=== PATIENT | male | born 1970 | race Caucasian/White ===

== ENCOUNTER 2016-06-24 20:29 | Emergency (ER) ==
[2016-06-24 20:35] VITALS: BP 156/94; TEMP 98.2; BMI 31.5
--- NOTE | 2016-06-24 20:47 | ED.PDOC ---
General ED Provider: Dr. SARAH LINCOLN Chief Complaint: Kidney Stone Stated Complaint: Patient is a 45 year old male with a history of kidney stones who comes to the ER with severe left flank dull pain. Pain started 2 hours ago now worse radiating to the left groin. Feels like prior history of stones. Time Seen by Physician: 20:46 Mode of Arrival: Walk-In Information Source: Patient Exam Limitations: No limitations Primary Care Provider: JASEN ROBBINS Nursing and Triage Documentation Reviewed and Agree: Yes Review of Systems - Review Of Systems Constitutional: Reports: Loss of appetite Eyes: Reports: No symptoms Ears, Nose, Mouth, Throat: Reports: No symptoms Respiratory: Reports: No symptoms Cardiac: Reports: No symptoms GI: Reports: Nausea : Reports: Flank pain, Pain Musculoskeletal: Reports: No symptoms Skin: Reports: No symptoms Neurological: Reports: No symptoms Endocrine: Reports: No symptoms Hematologic/Lymphatic: Reports: No symptoms All Other Systems: Reviewed and Negative Past Medical History - Past Medical History Endocrine: Reports: Unknown Cardiovascular: Reports: Unknown Respiratory: Reports: Unknown Hematological: Reports: Unknown Gastrointestinal: Reports: Unknown Genitourinary: Reports: Unknown Neuro/Psych: Reports: Unknown Musculoskeletal: Reports: Unknown Cancer: Reports: Unknown - Surgical History General Surgical History: Reports: Unknown - Family History Family History: Reports: Unknown - Social History Smoking Status: Never smoker Hx Substance Use: No Alcohol Screening: Occasionally - Immunizations Tetanus Shot up to Date: Yes Physical Exam - Physical Exam Appearance: Ill-appearing, Obese Ill-appearing: Severe Pain Distress: Severe Neck: Supple Respiratory: Airway patent, Breath sounds clear, Breath sounds equal, Respirations nonlabored Cardiovascular: RRR, Pulses normal, No rub, No murmur GI/: Soft, Nontender, No masses, Bowel sounds normal, No Organomegaly Musculoskeletal: Normal strength, ROM intact, No edema, No calf tenderness Skin: Warm Neurological: Sensation intact, Motor intact Psychiatric: Anxious Interpretation - Radiology Interpretation Radiology Interpretation By: Radiologist Radiology Results: Positive Exam Interpreted: CT Scan (8 x 5 mm stone in the UPJ) Physician Notification - Case Discussed Physician Notified: Dr. Orantes Time of Notification: 21:30 (Have pateint follow up in the [facility] at 1130 AM and to be NPO ) Critical Care Note - Critical Care Note Total Time (mins): 0 Course - Course Hematology/Chemistry: 06/24/16 21:00 06/24/16 21:00 Orders, Labs, Meds: Lab Review 06/24/16 06/24/16 20:45 21:00 WBC 8.23 RBC 5.05 Hgb 14.4 Hct 41.6 L MCV 82.4 MCH 28.5 MCHC 34.6 RDW Coeff of Della 13.0 Plt Count 238 Immature Gran % (Auto) 0.2 Neut % (Auto) 37.7 Lymph % (Auto) 51.4 H [place] % (Auto) 7.0 Eos % (Auto) 2.4 Baso % (Auto) 1.3 Immature Gran # (Auto) 0.0 Neut # 3.1 Lymph # 4.2 H [place] # 0.6 Eos # 0.2 Baso # 0.1 Sodium 141 Potassium 3.9 Chloride 103 Carbon Dioxide 28 Anion Gap 13.9 BUN 13 Creatinine 1.00 Estimated GFR (MDRD) 81.00 BUN/Creatinine Ratio 13.00 Glucose 215 H Calcium 9.5 Total Bilirubin 0.31 AST 15 ALT 17 Alkaline Phosphatase 54 Total Protein 7.6 Albumin 3.8 Globulin 3.8 Albumin/Globulin Ratio 1.00 Amylase 73 Lipase 31 Urine Color Yellow Urine Clarity Slightly Urine pH 5.0 Ur Specific [place] 1.015 Urine Protein Negative Urine Glucose (UA) Negative Urine Ketones Negative Urine Blood 2+ Urine Nitrite Negative Urine Bilirubin Negative Urine Urobilinogen 0.2 Ur Leukocyte Esterase Negative Urine Microscopic RBC 50-100 Ur Squamous Epith Cells Not present Orders Category Date Time Status ED IV/MEDIPORT/POWERPORT .ONCE EMERGENCY 06/24/16 20:50 Active AMYLASE Stat LAB 06/24/16 21:00 Completed CBC W/ AUTO DIFF Stat LAB 06/24/16 21:00 Completed COMPREHENSIVE METABOLIC PANEL Stat LAB 06/24/16 21:00 Completed LIPASE Stat LAB 06/24/16 21:00 Completed URINALYSIS C & S IF INDICATED Stat LAB 06/24/16 20:45 Completed 0.9 % Sodium Chloride [Saline Flush] MEDS 06/24/16 20:50 Discontinued 1 syr IVF PRN PRN Hydromorphone HCl [Dilaudid 1 mg/ml Syringe] MEDS 06/24/16 21:50 Discontinued 1 mg IVP ONCE STA Ketorolac Tromethamine [Toradol] MEDS 06/24/16 20:51 Discontinued 30 mg IVP ONCE STA Ondansetron HCl/Pf [Zofran 4 mg/2 ml] MEDS 06/24/16 20:50 Discontinued 4 mg IVP ONCE STA Sodium Chloride 0.9% [Sodium Chloride] 1,000 ml MEDS 06/24/16 20:50 Discontinued IV BOLUS Tamsulosin HCl [Flomax] MEDS 06/24/16 21:51 Discontinued 0.4 mg PO ONCE STA CT ABD/PEL WO RENAL STONE PROT Stat RADS 06/24/16 20:50 Completed Medications Discontinued Medications Generic Name Dose Route Start Last Admin Trade Name Freq PRN Reason Stop Dose Admin Hydromorphone HCl 1 mg 06/24/16 21:50 06/24/16 22:15 Dilaudid 1 Mg/Ml Syringe IVP 06/24/16 21:51 1 mg ONCE STA Administration Sodium Chloride 1,000 mls @ 1,000 mls/hr 06/24/16 20:50 06/24/16 21:08 Sodium Chloride IV 06/24/16 21:49 1,000 mls/hr BOLUS STA Administration Ketorolac Tromethamine 30 mg 06/24/16 20:51 06/24/16 21:13 Toradol IVP 06/24/16 20:52 30 mg ONCE STA Administration Ondansetron HCl 4 mg 06/24/16 20:50 06/24/16 21:11 Zofran 4 Mg/2 Ml IVP 06/24/16 20:51 4 mg ONCE STA Administration Sodium Chloride 1 syr 06/24/16 20:50 06/24/16 22:22 Saline Flush IVF 1 syr PRN PRN Administration To flush IV Tamsulosin HCl 0.4 mg 06/24/16 21:51 06/24/16 22:14 Flomax PO 06/24/16 21:52 0.4 mg ONCE STA Administration Vital Signs: Temp Pulse Resp BP Pulse Ox 06/24/16 20:30 98.2 F 87 20 156/94 H 98 Departure - Departure Time of Disposition: 22:43 Disposition: HOME SELF-CARE Discharge Problem: Nephrolithiasis Instructions: Renal Colic (ED), Kidney Stones (ED) Condition: Stable Pt referred to PMD for follow-up: Yes (in the morning with Dr Orantes. ) Additional Instructions: Follow up with Dr Orantes at 11:30 AM for possible lithotrhysy Do not eat or Drink until then. Prescriptions: Oxycodone-Acetaminophen 10-325 [Percocet 10-325] 1 tab PO Q4H #30 tablet Tamsulosin HCl [Flomax] 0.4 mg PO DAILY #10 cap.er.24h Allergies/Adverse Reactions: Allergies butorphanol tartrate [From Stadol] Adverse Reaction (Verified 06/24/16 21:54) erythromycin base [Erythromycin Base] Adverse Reaction (Verified 06/24/16 21:54) nalbuphine HCl [From Nubain] Adverse Reaction (Verified 06/24/16 21:54) Home Medications: Ambulatory Orders Alprazolam [Xanax] 1 mg PO BID 11/29/13 Aspirin [Aspirin Chewable] 81 mg PO DAILYWM 11/29/13 Citalopram Hydrobromide [Celexa] 40 mg PO DAILY 11/29/13 Furosemide [Lasix] 20 mg PO DAILY 11/29/13 Glimepiride [Amaryl] 2 mg PO DAILYWM 11/29/13 Hydrocodone Bit/Acetaminophen [[place] 10-325] 1 each PO Q4HR 11/29/13 Losartan Potassium [Cozaar] 100 mg PO DAILY 11/29/13 Pravastatin Sodium 10 mg PO DAILY 11/29/13 Ranitidine HCl [Zantac] 150 mg PO BIDAC 11/29/13 Tramadol HCl [Ultram] 50 mg PO Q6H 11/29/13 Oxycodone-Acetaminophen 10-325 [Percocet 10-325] 1 tab PO Q4H #30 tablet Tamsulosin HCl [Flomax] 0.4 mg PO DAILY #10 cap.er.24h 06/24/16
[2016-06-24] MEDS ORDERED: SODIUM CHLORIDE 1,000 ML IV STA (20:50)
[2016-06-24] MEDS ORDERED: ZOFRAN 4 MG/2 ML IVP STA (20:50)
[2016-06-24 20:51] LABS: BILIRUBIN,URINE Negative (NEGATIVE); KETONES,URINE Negative (NEGATIVE); LEUKOCYTE ESTERASE ,URINE Negative (NEGATIVE); NITRITE,URINE Negative (NEGATIVE); PROTEIN,URINE Negative (NEGATIVE); URINE, BLOOD 2+ (NEGATIVE)
[2016-06-24] MEDS ORDERED: TORADOL IVP STA (20:51)
[2016-06-24 20:56] LABS: ADD URINE MICROSCOPIC YES
[2016-06-24 21:04] LABS: BASOPHILS # (AUTO) 0.1 K/uL (0-0.2); BASOPHILS % (AUTO) 1.3 % (0.0-3.0); EOSINOPHILS # (AUTO) 0.2 K/ul (0.0-0.7); EOSINOPHILS % (AUTO) 2.4 % (0.0-7.0); HEMATOCRIT 41.6 % (42.0-52.0); HEMOGLOBIN 14.4 g/dl (14.0-18.0); IMMATURE GRANULOCYTE % (AUTO) 0.2 % (0.0-5.0); LYMPHOCYTES # (AUTO) 4.2 K/uL (0.60-3.4); LYMPHOCYTES % (AUTO) 51.4 (10.0-50.0); MEAN CORPUSCULAR HEMOGLOBIN 28.5 pg (27.0-31.0); MEAN CORPUSCULAR HGB CONC 34.6 (31.8-35.4); MEAN CORPUSCULAR VOLUME 82.4 fl (80.0-94.0); MONOCYTES # (AUTO) 0.6 K/uL (0.4-2.0); NEUTROPHILS # (AUTO) 3.1 K/ul (2.0-6.9); NEUTROPHILS % (AUTO) 37.7; PLATELET COUNT 238 10^3/uL (140-440); RED BLOOD COUNT 5.05 10^6/ul (4.70-6.10); WHITE BLOOD COUNT 8.23 K/ul (4.2-10.2)
--- NOTE | 2016-06-24 21:20 | CT ---
EXAM: CT abdomen pelvis without intravenous contrast 06/24/2016. Sagittal and coronal reformatted images obtained HISTORY: Left flank pain COMPARISON: 11/29/2013 FINDINGS: The liver, gallbladder, adrenal glands and right kidney show no acute process. Obstructing stone is present at the left ureteral pelvic junction. This measures approximately 8 x 5 mm. The spleen and pancreas show no acute abnormality. No bowel obstruction. Normal appendix. Unremarkable urinary bladder. No free air or free fluid. Chronic degenerative disc disease. L4-L5 spinal stenosis. IMPRESSION: 1. 8 x 5 mm diameter stone at the left ureteropelvic junction causes moderate left hydronephrosis.
[2016-06-24 21:24] LABS: ALBUMIN 3.8 g/dL (3.4-5.0); ANION GAP 13.9; BILIRUBIN,TOTAL 0.31 mg/dL (0.00-1.20); CALCIUM 9.5 mg/dL (8.2-10.2); POTASSIUM 3.9 mmol/L (3.5-5.1); TOTAL PROTEIN 7.6 g/dL (6.4-8.2)
[2016-06-24] MEDS ORDERED: DILAUDID 1 MG/ML SYRINGE IVP STA (21:50)
[2016-06-24] MEDS ORDERED: FLOMAX PO STA (21:51)
== END 2016-06-24 22:58 | disposition home or self-care (01) ==
LOC: ED 20:29
DX: N20.0 Calculus of kidney (principal); Z87.442 Personal history of urinary calculi
CPT/HCPCS: 36415; 74176; 80053; 81001; 82150; 83690; 85025; 96361; 96374; 96375; 99283

== ENCOUNTER 2016-08-10 23:50 | Emergency (ER) ==
[2016-08-11 00:04] VITALS: BP 166/95; TEMP 99; BMI 33.0
[2016-08-11] MEDS ORDERED: XANAX PO STA (00:07)
[2016-08-11] MEDS ORDERED: XANAX ONE (00:12)
--- NOTE | 2016-08-11 00:19 | ED.PDOC ---
General ED Provider: Dr. MANDI IRBY-ER Chief Complaint: Psychiatric Complaint Stated Complaint: im very nervous--josep been out of my xanax for two days--i feel very shaky Time Seen by Physician: 23:55 Mode of Arrival: Walk-In Information Source: Patient, Family Exam Limitations: No limitations Nursing and Triage Documentation Reviewed and Agree: Yes Psychological Complaint Exam - Psychiatric Complaint/Exam Patient Complains Of: Present: Other Onset/Duration: 2 days Symptoms Are: Still present Timing: Constant Initial Severity: Mild Character: Present: Fearful, Anxious Aggravating: Reports: Recent stress Associated Signs And Symptoms: Reports: Sleep disturbance. Denies: Hostile, Confused, Hallucinating, Paranoid behavior, Appetite change Related History: Denies: Suicidal thoughts, Suicidal plan, Suicidal gestures, Homicidal thoughts, Homicidal plan, Homicidal gestures, Prior attempts, Recent stressors, Drug ingestion Completed Suicide Risk Factors: Male, Patient Accompanied By: Family Patient In Custody Of Police: No Social Withdrawal Present: No Social Isolation Present: No Prior Suicide Attempt: No Injury From Prior Suicide Attempt: No Related Surgical History: Reports: None Patient Uncooperative For Exam: No Mood: Present: Anxious. Absent: Depressed, Angry, Guarded, Paranoid, Hallucinating, Manic, Agitated, Hearing voices Appearance: Present: Clean Thought Process: Present: Logical Insight: Present: Good Memory: Intact Judgement: Normal Danger To Others: No Differential Diagnoses: Anxiety Review of Systems - Review Of Systems Constitutional: Reports: No symptoms Eyes: Reports: No symptoms Ears, Nose, Mouth, Throat: Reports: No symptoms Respiratory: Reports: No symptoms Cardiac: Reports: No symptoms GI: Reports: No symptoms : Reports: No symptoms Musculoskeletal: Reports: No symptoms Skin: Reports: No symptoms Neurological: Reports: No symptoms Endocrine: Reports: No symptoms Hematologic/Lymphatic: Reports: No symptoms All Other Systems: Reviewed and Negative Past Medical History - Past Medical History Endocrine: Reports: Unknown Cardiovascular: Reports: Unknown Respiratory: Reports: Unknown Hematological: Reports: Unknown Gastrointestinal: Reports: Unknown Genitourinary: Reports: Unknown Neuro/Psych: Reports: Anxiety Musculoskeletal: Reports: Unknown Cancer: Reports: Unknown - Surgical History General Surgical History: Reports: Unknown - Family History Family History: Reports: Unknown - Social History Smoking Status: Never smoker 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, HAS BEEN CLENA FOR 10 YEARS) Alcohol Screening: None Lives: With family - Immunizations Tetanus Shot up to Date: Yes Physical Exam - Physical Exam Appearance: Well-appearing, No pain distress, Well-nourished Eyes: LOUIS, EOMI, Conjunctiva clear ENT: Ears normal, Nose normal, Oropharynx normal Neck: Supple Respiratory: Airway patent Cardiovascular: RRR, Pulses normal, No rub, No murmur GI/: Soft, Nontender, No masses, Bowel sounds normal, No Organomegaly Musculoskeletal: Normal strength, ROM intact, No edema, No calf tenderness Skin: Warm, Dry, Normal color Neurological: Alert, Oriented Psychiatric: Anxious Re-Evaluation - Re-Evaluation Time of Re-Evaluation: 00:20 Status: Improved Vital Signs Stable: Yes Pain Level: 0 Appearance: NAD Lungs: Clear Skin: Warm and Dry Neuro: Alert and Oriented X3 CV: RRR Critical Care Note - Critical Care Note Total Time (mins): 0 Course - Course Orders, Labs, Meds: Orders Category Date Time Status Alprazolam [Xanax] MEDS 08/11/16 00:12 Discontinued 1 mg .ROUTE .STK-MED ONE Alprazolam [Xanax] MEDS 08/11/16 00:07 Discontinued 1 mg PO ONCE STA Mag Hydrox/Al Hydrox/Simeth [Mylanta Susp] MEDS 08/11/16 00:23 Stat 30 ml PO ONCE STA Medications Discontinued Medications Generic Name Dose Route Start Last Admin Trade Name Freq PRN Reason Stop Dose Admin Al Hydroxide/Mg Hydroxide 30 ml 08/11/16 00:23 Mylanta Susp PO 08/11/16 00:24 ONCE STA Alprazolam 1 mg 08/11/16 00:07 08/11/16 00:21 Xanax PO 08/11/16 00:08 Not Given ONCE STA he also requests some mylanta for mild acid indigestion--denies any cp or dyspnea--says mylanta or maalox usually works--no anginal symptoms) Vital Signs: Temp Pulse Resp BP Pulse Ox 08/10/16 23:52 99 F 102 H 24 166/95 H 99 Departure - Departure Time of Disposition: 00:20 Disposition: HOME SELF-CARE Discharge Problem: Anxiety Instructions: Anxiety (ED) Condition: Good Pt referred to PMD for follow-up: Yes Additional Instructions: xanax 1mg tid prn #9--f/u with your doctor Allergies/Adverse Reactions: Allergies butorphanol tartrate [From Stadol] Adverse Reaction (Verified 08/11/16 00:04) erythromycin base [Erythromycin Base] Adverse Reaction (Verified 08/11/16 00:04) nalbuphine HCl [From Nubain] Adverse Reaction (Verified 08/11/16 00:04) Home Medications: Ambulatory Orders Alprazolam [Xanax] 1 mg PO BID 11/29/13 Aspirin [Aspirin Chewable] 81 mg PO DAILYWM 11/29/13 Citalopram Hydrobromide [Celexa] 40 mg PO DAILY 11/29/13 Furosemide [Lasix] 20 mg PO DAILY 11/29/13 Glimepiride [Amaryl] 3 mg PO DAILYWM 11/29/13 Hydrocodone Bit/Acetaminophen [[place] 10-325] 1 each PO Q4HR 11/29/13 Losartan Potassium [Cozaar] 100 mg PO DAILY 11/29/13 Pravastatin Sodium 10 mg PO DAILY 11/29/13 Ranitidine HCl [Zantac] 150 mg PO BIDAC 11/29/13 Tramadol HCl [Ultram] 50 mg PO Q6H 11/29/13 Tamsulosin HCl [Flomax] 0.4 mg PO DAILY #10 cap.er.24h 06/24/16 Dextroamphetamine/Amphetamine [Adderall 15 Mg Tablet] 15 mg PO BID #90 Divalproex Sodium [Depakote ER] 500 mg PO DAILY 08/11/16 Disposition Discussed With: Patient, Family
[2016-08-11] MEDS ORDERED: MYLANTA SUSP PO STA (00:23)
[2016-08-11] MEDS ORDERED: MYLANTA SUSP ONE (01:30)
== END 2016-08-11 00:37 | disposition home or self-care (01) ==
LOC: ED 23:50
DX: F41.9 Anxiety disorder, unspecified (principal)
CPT/HCPCS: 99282

== ENCOUNTER 2017-03-23 08:46 | Outpatient (CLI) ==
[2017-03-23 09:01] LABS: BASOPHILS # (AUTO) 0.2 K/uL (0-0.2); BASOPHILS % (AUTO) 2.2 % (0.0-3.0); EOSINOPHILS # (AUTO) 0.1 K/ul (0.0-0.7); EOSINOPHILS % (AUTO) 1.3 % (0.0-7.0); HEMATOCRIT 43.1 % (42.0-52.0); HEMOGLOBIN 14.8 g/dl (14.0-18.0); IMMATURE GRANULOCYTE % (AUTO) 0.8 % (0.0-5.0); LYMPHOCYTES # (AUTO) 2.7 K/uL (0.60-3.4); LYMPHOCYTES % (AUTO) 37.4 (10.0-50.0); MEAN CORPUSCULAR HEMOGLOBIN 28.7 pg (27.0-31.0); MEAN CORPUSCULAR HGB CONC 34.3 (31.8-35.4); MEAN CORPUSCULAR VOLUME 83.5 fl (80.0-94.0); MONOCYTES # (AUTO) 0.5 K/uL (0.4-2.0); MONOCYTES % (AUTO) 7.2 (0-10); NEUTROPHILS # (AUTO) 3.7 K/ul (2.0-6.9); NEUTROPHILS % (AUTO) 51.1; PLATELET COUNT 241 10^3/uL (140-440); RED BLOOD COUNT 5.16 10^6/ul (4.70-6.10)
[2017-03-23 09:02] LABS: BILIRUBIN,URINE Negative (NEGATIVE); KETONES,URINE Negative (NEGATIVE); LEUKOCYTE ESTERASE ,URINE Negative (NEGATIVE); NITRITE,URINE Negative (NEGATIVE); PROTEIN,URINE Negative (NEGATIVE); URINE, BLOOD Trace-intact (NEGATIVE)
[2017-03-23 09:03] LABS: ADD URINE MICROSCOPIC YES
[2017-03-23 09:10] LABS: COCAIN SCREEN,URINE NEGATIVE (NEGATIVE)
[2017-03-23 09:19] LABS: ALBUMIN 3.6 g/dL (3.4-5.0); ALBUMIN/GLOBULIN RATIO 0.86; ANION GAP 11.3; BILIRUBIN,TOTAL 0.44 mg/dL (0.00-1.20); BUN/CREATININE RATIO 19.38; CALCIUM 9.9 mg/dL (8.2-10.2); CHOL/HDL RATIO 4.6 (4.5-6.4); CREATININE 0.98 mg/dL (0.60-1.10); POTASSIUM 4.3 mmol/L (3.5-5.1); TOTAL PROTEIN 7.8 g/dL (6.4-8.2)
== END 2017-03-23 08:47 | disposition home or self-care (01) ==
LOC: LAB 08:46
PROVIDERS: ATTEND Internal Medicine
DX: M19.90 Unspecified osteoarthritis, unspecified site (principal); E11.9 Type 2 diabetes mellitus without complications
CPT/HCPCS: 36415; 80053; 80061; 80306; 81001; 83036; 85025

== ENCOUNTER 2017-09-10 09:40 | Outpatient (CLI) ==
--- NOTE | 2017-09-10 10:56 | DI ---
EXAM: Radiographs, left knee HISTORY: Left knee osteoarthritis. COMPARISON: None available. TECHNIQUE: Two views. FINDINGS: Bone mineralization is normal. There is no fracture or dislocation. Mild medial compartm ent joint space narrowing noted. Small marginal osteophytes present in all three knee joint compartm ents. No erosions are seen. Soft tissues are unremarkable. IMPRESSION: Mild osteoarthritis.
--- NOTE | 2017-09-10 10:58 | DI ---
Exam: Right hip two-view History: Osteoarthritis FINDINGS / impression: Right hip arthroplasty in place. No brian-hardware fracture or evidence of l oosening. Right sydnee pelvis is intact. No acute bony or articular abnormalities.
== END 2017-09-10 09:41 | disposition home or self-care (01) ==
LOC: RAD 09:40
PROVIDERS: ATTEND Internal Medicine
DX: M16.11 Unilateral primary osteoarthritis, right hip (principal); M17.12 Unilateral primary osteoarthritis, left knee

== ENCOUNTER 2017-10-06 09:43 | Outpatient (CLI) ==
--- NOTE | 2017-10-06 13:54 | DEXA ---
EXAM: DEXA scan. HISTORY: Osteoporosis. COMPARISON: None available. TECHNIQUE: Zenopso [id number]. DEXA scan lumbar spine performed. Quality of the study is good. BMD is 1.345 grams per square centi meter. T-score 1.0. Z-score 0.4. DEXA scan left femoral neck performed. Quality of the study is good. BMD 1.057 grams per square cent imeter. T-score -0.1. Z-score -0.1. IMPRESSION: According to the World Health Organization classification, lumbar spine and left hip bone mineral den sity demonstrates normal mineralization, with no increased fracture risk. Ten-year major osteoporoti c fracture risk is 4.4%. Ten-year hip fracture risk is 0.1%.
== END 2017-10-06 09:44 | disposition home or self-care (01) ==
LOC: RAD 09:43
PROVIDERS: ATTEND Internal Medicine
DX: M81.0 Age-related osteoporosis without current pathological fracture (principal)

== ENCOUNTER 2017-11-29 20:50 | Emergency (ER) ==
[2017-11-29] MEDS ORDERED: TORADOL IM STA (21:03)
[2017-11-29 21:07] VITALS: BP 157/97; TEMP 99.7; BMI 30.9
--- NOTE | 2017-11-29 21:40 | CT ---
EXAM: CT abdomen and pelvis without intravenous contrast 11/29/2017. Sagittal and coronal reformatt ed images obtained HISTORY: Left flank pain COMPARISON: 06/24/2016 FINDINGS: The liver, gallbladder, adrenal glands and right kidney show no acute process. Multifocal right-sided nonobstructive nephrolithiasis. There is moderate to severe left hydronephrosis. Extensive left perinephric stranding. Stone at the left ureteropelvic junction on image 75 measures approximately 6 x 5 mm diameter. A portion of the pelvis is obscured by streak artifacts secondary to right hip arthroplasty. The spleen and pancreas show no acute abnormality. There is no bowel obstruction. Normal appendix. No free air or free fluid. IMPRESSION: 6 x 5 mm diameter stone at the left ureteropelvic junction causes moderate to severe lef t hydronephrosis. Additional details as above.
[2017-11-29] MEDS ORDERED: DILAUDID 2 MG/ML SYRINGE IM STA (21:46)
[2017-11-29] MEDS ORDERED: PHENERGAN 25 MG/ML VIAL IM STA (21:46)
[2017-11-29] MEDS ORDERED: PHENERGAN 25 MG/ML VIAL ONE (21:48)
[2017-11-29] MEDS ORDERED: DILAUDID 2 MG/ML SYRINGE ONE (21:48)
--- NOTE | 2017-11-29 21:49 | ED.PDOC ---
General ED Provider: Dr. MANDI IRBY-ER Chief Complaint: Kidney Stone Stated Complaint: i hurt --i think i have a kidney stone Time Seen by Physician: 20:55 Mode of Arrival: Walk-In Information Source: Patient Exam Limitations: No limitations Primary Care Provider: JASEN ROBBINS Nursing and Triage Documentation Reviewed and Agree: Yes Does patient meet sepsis criteria?: No System Inflammatory Response Syndrome: Not Applicable Sepsis Protocol: For patient's 13 years and over: Temp is 96.8 and below OR 101 and greater Pulse >90 BPM Resp >20/minute Acutely Altered Mental Status Are patient's symptoms suggestive of a new infection, such as: -Pneumonia -Skin, Soft Tissue -Endocarditis -UTI -Bone, Joint Infection -Implantable Device -Acute Abdominal Infection -Wound Infection -Meningitis -Blood Stream Catheter Infection -Unknown GI Complaint Exam - Abdominal Pain Complaint/Exam Onset: Gradual Duration: several hours Symptoms Are: Still present Timing: Constant Initial Severity: Mild Current Severity: Moderate Location of Pain: LLQ Radiates To: Reports: Flank Character: Reports: Dull, Aching Aggravating: Reports: None Alleviating: Reports: None Associated Signs and Symptoms: Reports: Back pain Related History: Reports: Similar episode AAA Risk Factors: Reports: None Surgical Obstruction Risk Factors: Reports: Colicky abdominal pain Related Surgical History: Reports: Kidney Stones Differential Diagnoses: Ureteral Stone Review of Systems - Review Of Systems Constitutional: Reports: No symptoms Eyes: Reports: No symptoms Ears, Nose, Mouth, Throat: Reports: No symptoms Respiratory: Reports: No symptoms Cardiac: Reports: No symptoms GI: Reports: No symptoms : Reports: Flank pain Musculoskeletal: Reports: No symptoms, Back pain Skin: Reports: No symptoms Neurological: Reports: No symptoms Endocrine: Reports: No symptoms Hematologic/Lymphatic: Reports: No symptoms All Other Systems: Reviewed and Negative Past Medical History - Past Medical History Previously Healthy: Yes Endocrine: Reports: Unknown Cardiovascular: Reports: Unknown Respiratory: Reports: Unknown Hematological: Reports: Unknown Gastrointestinal: Reports: Unknown Genitourinary: Reports: Unknown Neuro/Psych: Reports: Anxiety Musculoskeletal: Reports: Unknown Cancer: Reports: Unknown - Surgical History General Surgical History: Reports: Unknown - Family History Family History: Reports: Unknown - Social History Smoking Status: Never smoker 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, HAS BEEN CLEAN FOR 10 YEARS) Alcohol Screening: None - Immunizations Tetanus Shot up to Date: Yes Physical Exam - Physical Exam Appearance: Well-appearing, Well-nourished Pain Distress: Moderate Eyes: [place] ENT: Ears normal, Nose normal, Oropharynx normal Neck: Supple Respiratory: Airway patent Cardiovascular: RRR GI/: Soft, Nontender, No masses, Bowel sounds normal, No Organomegaly Musculoskeletal: Normal strength Skin: Warm, Dry, Normal color Neurological: Sensation intact, Motor intact, Reflexes intact, Cranial nerves intact, Alert, Oriented Psychiatric: Affect appropriate, Mood appropriate Interpretation - Radiology Interpretation Radiology Interpretation By: Radiologist Radiology Results: Positive Exam Interpreted: CT Scan Critical Care Note - Critical Care Note Total Time (mins): 0 Course - Course Hematology/Chemistry: 11/29/17 21:15 11/29/17 21:15 Orders, Labs, Meds: Lab Review 11/29/17 11/29/17 11/29/17 21:12 21:15 21:15 WBC 13.79 H RBC 5.56 Hgb 15.8 Hct 45.0 MCV 80.9 MCH 28.4 MCHC 35.1 RDW Coeff of [place]ella 13.2 Plt Count 287 Immature Gran % (Auto) 0.4 Neut % (Auto) 64.7 Lymph % (Auto) 26.8 [place] % (Auto) 7.0 Eos % (Auto) 0.4 Baso % (Auto) 0.7 Immature Gran # (Auto) 0.1 Neut # (Auto) 8.9 H Lymph # (Auto) 3.7 H [place] # (Auto) 1.0 Eos # (Auto) 0.1 Baso # (Auto) 0.1 Sodium 144 Potassium 3.7 Chloride 105 Carbon Dioxide 27 Anion Gap 15.7 BUN 11 Creatinine 1.14 H Estimated GFR (MDRD) 69.00 BUN/Creatinine Ratio 9.64 Glucose 78 Calcium 10.1 Total Bilirubin 1.1 AST 27 ALT 31 Alkaline Phosphatase 60 Total Protein 9.1 H Albumin 4.3 Globulin 4.8 Albumin/Globulin Ratio 0.90 Urine Color Yellow Urine Clarity Slightly Urine pH 7.0 Ur Specific [place] 1.015 Urine Protein Trace Urine Glucose (UA) Negative Urine Ketones Negative Urine Blood 3+ Urine Nitrite Negative Urine Bilirubin Negative Urine Urobilinogen 0.2 Ur Leukocyte Esterase Trace Urine Microscopic RBC 20-30 Urine Microscopic WBC 0-2 Ur Squamous Epith Cells 0-2 Orders Category Date Time Status CBC W/ AUTO DIFF Stat LAB 11/29/17 21:15 Completed COMPREHENSIVE METABOLIC PANEL Stat LAB 11/29/17 21:15 Completed URINALYSIS C & S IF INDICATED Stat LAB 11/29/17 21:12 Completed Hydromorphone HCl/Pf [Dilaudid 2 mg/ml Syringe] MEDS 11/29/17 21:46 Stat 2 mg IM ONCE STA Ketorolac Tromethamine [Toradol] MEDS 11/29/17 21:03 Discontinued 60 mg IM ONCE STA Promethazine HCl [Phenergan 25 mg/ml Vial] MEDS 11/29/17 21:46 Stat 25 mg IM ONCE STA CT ABD/PEL WO RENAL STONE PROT Stat RADS 11/29/17 21:03 Completed Medications Discontinued Medications Generic Name Dose Route Start Last Admin Trade Name Freq PRN Reason Stop Dose Admin Ketorolac Tromethamine 60 mg 11/29/17 21:03 11/29/17 21:14 Toradol IM 11/29/17 21:04 60 mg ONCE STA Administration Vital Signs: Temp Pulse Resp BP Pulse Ox 11/29/17 20:53 99.7 F H 105 H 24 157/97 H 98 Departure - Departure Time of Disposition: 21:50 Disposition: HOME SELF-CARE Discharge Problem: Ureteral stone Instructions: Ureteral Stones (ED) Condition: Good Pt referred to PMD for follow-up: Yes IPMP verified?: No Additional Instructions: strain all urine--flomax 0.4 daily #3--percocet 7.5mg q 4hrs prn pain#10---f/u with dr mixon tomorrow for urology referral Allergies/Adverse Reactions: Allergies butorphanol tartrate [From Stadol] Adverse Reaction (Verified 11/29/17 21:01) erythromycin base [Erythromycin Base] Adverse Reaction (Verified 11/29/17 21:01) nalbuphine HCl [From Nubain] Adverse Reaction (Verified 11/29/17 21:01) Home Medications: Ambulatory Orders Alprazolam [Xanax] 1 mg PO BID 11/29/13 Aspirin [Aspirin Chewable] 81 mg PO DAILYWM 11/29/13 Citalopram Hydrobromide [Celexa] 40 mg PO DAILY 11/29/13 Furosemide [Lasix] 20 mg PO DAILY 11/29/13 Glimepiride [Amaryl] 2 mg PO DAILYWM 11/29/13 Hydrocodone Bit/Acetaminophen [[place] 10-325] 1 each PO Q4HR 11/29/13 Losartan Potassium [Cozaar] 100 mg PO DAILY 11/29/13 Pravastatin Sodium 20 mg PO DAILY 11/29/13 Ranitidine HCl [Zantac] 150 mg PO BIDAC 11/29/13 Tramadol HCl [Ultram] 50 mg PO Q6H 11/29/13 Dextroamphetamine/Amphetamine [Adderall 20 mg Tablet] 20 mg PO TID 11/29/17 Disposition Discussed With: Patient
== END 2017-11-29 22:30 | disposition home or self-care (01) ==
LOC: ED 20:50
DX: N20.1 Calculus of ureter (principal); Z87.442 Personal history of urinary calculi
CPT/HCPCS: 36415; 74176; 80053; 81001; 85025; 96372; 99283

== ENCOUNTER 2018-02-08 07:38 | Outpatient (CLI) | END 2018-02-08 07:39 | disposition home or self-care (01) | LOC: LAB 07:38 | PROVIDERS: ATTEND Internal Medicine | DX: E11.9 Type 2 diabetes mellitus without complications (principal); M19.90 Unspecified osteoarthritis, unspecified site; F32.9 Major depressive disorder, single episode, unspecified; I73.9 Peripheral vascular disease, unspecified; M54.5 Low back pain | CPT/HCPCS: 36415; 80053; 80061; 83036; 85025 ==

== ENCOUNTER 2018-06-01 13:37 | Emergency (ER) | payer MEDICAID, OTHER ==
[2018-06-01 13:42] VITALS: BP 147/105; TEMP 98.6; BMI 31.5
--- NOTE | 2018-06-01 14:24 | ED.PDOC ---
General ED Provider: Dr. MANDI MACK Chief Complaint: Kidney Stone Stated Complaint: Passed kidney stone. C/O onset lower back pain, more uncomfortable on left side.PMHx kidney stones. Having burning with urination and beleives stone has moved from bladder lodged to end of penis. Time Seen by Physician: 13:55 Mode of Arrival: Walk-In Information Source: Patient Exam Limitations: No limitations Primary Care Provider: JEANNE NICHOLS Nursing and Triage Documentation Reviewed and Agree: No Does patient meet sepsis criteria?: No If yes, has appropriate treatment been initiated?: No System Inflammatory Response Syndrome: Not Applicable Sepsis Protocol: For patient's 13 years and over: Temp is 96.8 and below OR 101 and greater Pulse >90 BPM Resp >20/minute Acutely Altered Mental Status Are patient's symptoms suggestive of a new infection, such as: -Pneumonia -Skin, Soft Tissue -Endocarditis -UTI -Bone, Joint Infection -Implantable Device -Acute Abdominal Infection -Wound Infection -Meningitis -Blood Stream Catheter Infection -Unknown Review of Systems - Review Of Systems Constitutional: Reports: No symptoms Eyes: Reports: No symptoms Ears, Nose, Mouth, Throat: Reports: No symptoms Respiratory: Reports: No symptoms Cardiac: Reports: No symptoms GI: Reports: No symptoms : Reports: Burning, Dysuria, Frequency, Flank pain Musculoskeletal: Reports: Back pain Skin: Reports: No symptoms Neurological: Reports: No symptoms Endocrine: Reports: No symptoms Hematologic/Lymphatic: Reports: No symptoms All Other Systems: Reviewed and Negative Past Medical History - Past Medical History Previously Healthy: Yes Endocrine: Reports: Unknown Cardiovascular: Reports: Unknown Respiratory: Reports: Unknown Hematological: Reports: Unknown Gastrointestinal: Reports: Unknown Genitourinary: Reports: Unknown Neuro/Psych: Reports: Anxiety Musculoskeletal: Reports: Unknown Cancer: Reports: Unknown - Surgical History General Surgical History: Reports: Unknown - Family History Family History: Reports: Unknown - Social History Smoking Status: Never smoker 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, HAS BEEN CLEAN FOR 10 YEARS) Alcohol Screening: None Physical Exam - Physical Exam Appearance: Well-appearing, No pain distress, Well-nourished Eyes: [place]OU[place], EOMI, Conjunctiva clear ENT: Ears normal, Nose normal, Oropharynx normal Respiratory: Airway patent, Breath sounds clear, Breath sounds equal, Respirations nonlabored Cardiovascular: RRR, Pulses normal, No rub, No murmur GI/: Soft, No masses, Bowel sounds normal, No Organomegaly, Tender (minimally tender lower abdomen ; neg guarding or rebound) Musculoskeletal: Normal strength, ROM intact, No edema, No calf tenderness Skin: Warm, Dry, Normal color Neurological: Sensation intact, Motor intact, Reflexes intact, Cranial nerves intact, Alert, Oriented Psychiatric: Affect appropriate, Mood appropriate Interpretation - Radiology Interpretation Exam Interpreted: CT Scan (Rt Nephrolithiasis . Previoulsy notes Lt Ureteral calculus not observed.;diverticulisi;hepatic steatosis) Critical Care Note - Critical Care Note Total Time (mins): 0 Course - Course Hematology/Chemistry: 06/01/18 14:35 06/01/18 14:35 Orders, Labs, Meds: Lab Review 06/01/18 06/01/18 06/01/18 14:10 14:35 14:35 WBC 7.34 RBC 5.52 Hgb 15.1 Hct 44.7 MCV 81.0 MCH 27.4 MCHC 33.8 RDW Coeff of Della 12.7 Plt Count 264 Immature Gran % (Auto) 0.1 Neut % (Auto) 63.7 Lymph % (Auto) 29.2 [place] % (Auto) 4.6 Eos % (Auto) 1.6 Baso % (Auto) 0.8 Immature Gran # (Auto) 0.0 Neut # (Auto) 4.7 Lymph # (Auto) 2.1 [place] # (Auto) 0.3 L Eos # (Auto) 0.1 Baso # (Auto) 0.1 Sodium 142.0 Potassium 4.24 Chloride 102.7 Carbon Dioxide 27.6 Anion Gap 15.94 BUN 17.6 Creatinine 1.04 Estimated GFR (MDRD) 77.00 BUN/Creatinine Ratio 16.92 Glucose 193.2 H Calcium 11.18 H Total Bilirubin 0.62 AST 25.5 ALT 25.7 Alkaline Phosphatase 61.2 Total Protein 9.03 H Albumin 4.79 Globulin 4.24 Albumin/Globulin Ratio 1.12 Urine Color Yellow Urine Clarity Clear Urine pH 5.0 Ur Specific [place] <=1.005 Urine Protein Negative Urine Glucose (UA) Negative Urine Ketones Negative Urine Blood 2+ Urine Nitrite Negative Urine Bilirubin Negative Urine Urobilinogen 0.2 Ur Leukocyte Esterase Negative Urine Microscopic RBC 10-20 Ur Squamous Epith Cells Not present Hyaline Casts 0-2 Orders Category Date Time Status CBC W/ AUTO DIFF Stat LAB 06/01/18 14:35 Completed COMPREHENSIVE METABOLIC PANEL Stat LAB 06/01/18 14:35 Completed URINALYSIS C & S IF INDICATED Stat LAB 06/01/18 14:[address] ABD/PEL WO RENAL STONE PROT Stat RADS 06/01/18 14:22 Completed Vital Signs: Temp Pulse Resp BP Pulse Ox 06/01/18 13:38 98.6 F 107 H 20 147/105 H 97 Departure - Departure Time of Disposition: 15:20 Disposition: HOME SELF-CARE Discharge Problem: Nephrolithiasis Instructions: Kidney Stones (ED) Condition: Good Pt referred to PMD for follow-up: Yes (1 week) IPMP verified?: Yes Additional Instructions: Seen PCP in 1 -2 weeks Strain all urine to screen for stones Diet as directed Allergies/Adverse Reactions: Allergies butorphanol tartrate [From Stadol] Adverse Reaction (Verified 06/01/18 13:43) erythromycin base [Erythromycin Base] Adverse Reaction (Verified 06/01/18 13:43) nalbuphine HCl [From Nubain] Adverse Reaction (Verified 06/01/18 13:43) Home Medications: Ambulatory Orders Alprazolam [Xanax] 1 mg PO BID 11/29/13 Aspirin [Aspirin Chewable] 81 mg PO DAILYWM 11/29/13 Furosemide [Lasix] 20 mg PO DAILY 11/29/13 Hydrocodone Bit/Acetaminophen [[place] 10-325] 1 each PO Q4HR 11/29/13 Losartan Potassium [Cozaar] 100 mg PO DAILY 11/29/13 Pravastatin Sodium 20 mg PO DAILY 11/29/13 Ranitidine HCl [Zantac] 150 mg PO BIDAC 11/29/13 Tramadol HCl [Ultram] 50 mg PO Q6H 11/29/13 Dextroamphetamine/Amphetamine [Adderall 20 mg Tablet] 20 mg PO BID 11/29/17 Duloxetine HCl [Cymbalta] 60 mg PO DAILY 04/05/18 Glimepiride [Amaryl] 3 mg PO DAILY 04/05/18 Hydroxyzine Pamoate [Vistaril] 25 mg PO TID 04/05/18 Topiramate [Topamax] 50 mg PO DAILY 04/05/18 Disposition Discussed With: Patient
--- NOTE | 2018-06-01 15:13 | CT ---
EXAM: CT abdomen pelvis without contra HISTORY: Left renal stone COMPARISON: 11/29/2017 TECHNIQUE: CT abdomen pelvis performed without intravenous contrast. Sagittal reformatted images obt ained. FINDINGS: Lung bases clear. No free air. No acute abnormalities of the bones. Right hip arthropla sty. Degenerative change in the spine. Heart normal in size. Evaluation organ parenchyma limited w ithout contrast. Liver diffusely decreased in attenuation. Gallbladder appears normal. Pancreas ap pears normal. Spleen appears normal. Adrenals appear normal. Aorta normal in caliber. Prostate no rmal in size. No lymphadenopathy or ascites. Stomach appears normal. No dilated loops small bowel. Appendix appears normal. Mild colonic diverticulosis. Two nonobstructing calculi in the right kid bebeto measuring up to 2.5 mm. No left nephrolithiasis. No hydronephrosis. No calculi visualized in t he normal course of the ureters. Bladder partially obscured secondary to streak artifact from right hip arthroplasty, grossly unremarkable. IMPRESSION: 1. Right nephrolithiasis. No hydronephrosis. Previously seen left ureteral calculus no longer pres ent. 2. Diverticulosis. 3. Hepatic steatosis
== END 2018-06-01 15:46 | disposition home or self-care (01) ==
LOC: ED 13:37
DX: N20.0 Calculus of kidney (principal); Z87.442 Personal history of urinary calculi
CPT/HCPCS: 36415; 74176; 80053; 81001; 85025; 99283